=== PATIENT | female | born 1960 | race Caucasian/White ===

== ENCOUNTER 2017-08-24 13:36 | Emergency (ER) | payer SELFPAY ==
[~2017-08-24] VITALS: Ht 160 cm; Wt 72.6 kg
[2017-08-24 13:54] VITALS: BP_SYST 145
[2017-08-24] MEDS: MORPHINE SULFATE 10 MG/ML VIAL IM ONE (16:33)
[2017-08-24] MEDS: DIPHENHYDRAMINE INJ 50 MG/ML VIAL IM ONE (16:34)
[2017-08-24] MEDS: ACETAMINOPHEN 500 MG TABLET PO ONE (16:34)
[2017-08-24 16:35] VITALS: BP_SYST 138
[2017-08-24] MEDS: CYCLOBENZAPRINE HCL 10 MG TABLET (FLEXERIL) PO ONE (16:38)
== END 2017-08-24 16:35 | disposition home or self-care (01) ==
LOC: SED 13:36
DX: S16.1XXA Strain of muscle, fascia and tendon at neck level, initial encounter (principal); S39.012A Strain of muscle, fascia and tendon of lower back, initial encounter; R03.0 Elevated blood-pressure reading, without diagnosis of hypertension; V89.2XXA Person injured in unspecified motor-vehicle accident, traffic, initial encounter; Y93.89 Activity, other specified; Y92.488 Other paved roadways as the place of occurrence of the external cause; Y99.9 Unspecified external cause status
CPT/HCPCS: 72125; 72131; 96372; 99284; J1200; J2270